=== PATIENT | male | born 1980 | race Caucasian/White ===

== ENCOUNTER 2024-03-25 21:12 | Observation (INO) ==
[2024-03-25] MEDS: SODIUM CHLORIDE 0.9% 1,000 ML IV STA (21:46)
[2024-03-25 21:52] LABS: Albumin Globulin Ratio 2.2 (0.9-2); Albumin Level 4.3 gm/dl (3.4-5.0); BUN Creatinine Ratio 17.6 (10-20); Bilirubin,Total 0.9 mg/dl (0.2-1.0); Calcium 8.8 mg/dl (8.6-10.3); Creatinine Clr Calc Pharmacy 76.3 ml/min; Est GFR (African American) 55.6 ml/min; Potassium 3.7 mmol/L (3.5-5.1); Total Protein 6.3 gm/dl (6.0-8.3)
[2024-03-25 21:57] LABS: Troponin I High Sensitivity 2.9 pg/ml (0-20)
[2024-03-25 22:01] LABS: Basophils # (auto) 0.08 K/uL (0.00-0.20); Basophils % (auto) 0.7 %; Eosinophils # (auto) 0.26 K/uL (0.00-0.50); Eosinophils % (auto) 2.3 %; Hematocrit (blood only) 42.1 % (42.0-52.0); Hemoglobin 14.9 g/dl (14.0-18.0); Immature Granulocytes # (auto) 0.02 K/uL (0.01-0.20); Immature Granulocytes % (auto) 0.2 %; Lymphocytes # (auto) 4.38 K/uL (1.20-3.40); Lymphocytes % (auto) 38.3 %; Mean Corpuscular Hemoglobin 31.4 pg (25.0-34.0); Mean Corpuscular Hgb Conc 35.4 g/dL (32.0-36.0); Mean Corpuscular Volume 88.6 fL (80.0-100.0); Monocytes # (auto) 0.79 K/uL (0.11-0.59); Monocytes % (auto) 6.9 %; Neutrophils % (auto) 51.6 %; Platelet Count 211 K/uL (130-400); RDW Coefficient of Variation 11.5 % (11.5-14.5); RDW Standard Deviation 37.1 fL (36.4-46.3); Red Blood Count 4.75 M/uL (4.70-6.10); White Blood Count 11.43 K/ul (4.8-10.8)
[2024-03-25 22:02] LABS: D Dimer 450 ug/L FEU (0-500)
[2024-03-25 22:07] LABS: Thyroid Stimulating Hormone 3.207 uIu/ml (0.300-4.500)
[2024-03-25] MEDS: SODIUM CHLORIDE 0.9% 500 ML IV STA (23:17)
--- NOTE | 2024-03-26 00:19 | History & Physical Report ---
Date of Service March 26, 2024 Assessment & Plan (1) Syncope and collapse: Plan: - Given history concern for cardiac vs vasovagal. Based on history does note sound like seizure - Hemodynamically stable now - Trop wnl, EKG with NSR - TTE pending - Monitor of telemetry->may need Holter monitor on d/c to rule out arrhythmia - Continue to monitor of tele (2) BLUE (acute kidney injury): Plan: - Creatine= 1.7 (baseline 1.2) - Would be quick to see increased creatine in the setting of rather short lived hypotension. - Noted episode of heat exhaustion last week-> CPK pending - Creatine also possible cause - Will continue with LR @125ml/hr overnight and repeat BMP qAM (3) Anxiety: Plan: - continue fluoxtine (4) ADD (attention deficit disorder): Plan: - continue methylphenidate Plan Code: Full Dispo: Tele Diet: regular VTE Prophylaxis Low risk- ambulation History of Present Illness Primary Care Provider: Fatemeh Olivera MD 43 year old male with a past medical history of ADHD, Anxiety presenting after syncopal episode. Went over the neighbor's house to help after neighbor had a syncopal episode. He said that he was helping his neighbor up when he started to feel lightheaded. Started to see floaters, nausea, diaphoretic. Sat down on the couch. witnessed event. Said that he was unresponsiveness for about 30s- unsure if he had a pulse, felt like he was not breathing. Denies tongue biting. urinary incontinence, seizure like activity. Was a little confused after the event, but last for less than 1 minute. When EMS arrived noted to be hypotensive and bradycardic, received atropine. Does use medical marijuana every evening, and did prior to event. Works out daily, has been supplementing with creatine for the past year. ED Course Significant for: CBC unremarkable, TSH wnl, Creatine= 1.7 (baseline= 1.2) , Trop= 2.9, CXR without acute pathology per my read , EKG with NSR, HR= 96, no ischemic changes/arrhythmias Interventions: 1.5L NSS Allergies Allergy/AdvReac Type Severity Reaction Status Date / Time No Known Allergies Allergy Verified 10/11/23 08:46 Home Medications Medication Instructions Recorded Confirmed Type fluoxetine 20 mg tablet 20 mg PO QAM #30 tabs 07/01/24 09/17/24 Rx methylphenidate HCl 10 mg tablet 10 mg PO TID #90 tabs 03/01/24 03/26/24 Rx Past Med/Surg History Problem List (Updated 03/26/24 @ 01:40 by Tano Portillo MD) BLUE (acute kidney injury) (Acute) Syncope and collapse (Acute) Hypertension (Chronic) Anxiety (Chronic) Insomnia (Chronic) ADD (attention deficit disorder) (Chronic) Medical History Hypertension Anxiety Insomnia ADD (attention deficit disorder) Surgical History S/P tonsillectomy History of mandibular surgery Family History Mother Diabetes Father Hypertension Dyslipidemia Social History Smoking Status: Never smoker Tobacco Type: Cigarettes Second Hand Exposure: Yes; Hx Alcohol Use: Yes Hx Substance Use: Yes Last Used Substance: Hours (ago) Preferred Language: Somali Communication Ability: Effective Beliefs That Will Affect Care: None marital status: Current Living Situation: Spouse current occupational status: employed Feels Safe at Home: Yes Safety Concerns: Feels Safe At This Time Childhood Exposure to Second-Hand Smoke: Yes Diet: low carbohydrate and regular caffeine: Yes Dental Care, Regularly: Yes Physical Activity Frequency: 5-6 Times per Week Seatbelt Use: always Sunscreen Use: Yes Review of Systems Review of Systems: As per above Physical Exam Physical Exam: Constitutional: well-appearing, no acute distress HEENT: NCAT, no conjunctival injection CV: regular rhythm, no murmur appreciated, extremities well-perfused, no LE edema Resp: CTABL, no wheezes/rales/rhonchi appreciated, no increased work of breathing GI: soft, nondistended, nontender MSK: no gross deformities appreciated Skin: warm, dry, no rash appreciated Neuro: alert, oriented, no focal neurologic deficit appreciated Results & Data Results & Data Vital Signs (Past 12 Hours) Vital Signs Temp Pulse Pulse Resp BP BP Pulse Ox 03/25/24 23:19 71 18 145/86 H 99 03/25/24 22:19 91 H 22 124/86 96 03/25/24 21:42 91 H 20 119/83 95 03/25/24 21:41 95 03/25/24 21:18 36.6 C 91 H 20 114/90 95 03/25/24 21:17 90 O2 Del Method 03/25/24 23:19 Room Air 03/25/24 22:19 Room Air 03/25/24 21:42 Room Air 03/25/24 21:41 Room Air 03/25/24 21:18 Room Air 03/25/24 21:17 Supervising Physician Co-Signing Physician Notes Patient seen and examined, chart reviewed, case discussed with Dr. Lima and I agree with the assessment and plan as above.. Patient is a 43yo male presenting with syncope - some concern for loss of pulse, brief respiratory arrest around the time of syncope Patient bradycardic for EMS - administered Atropine HD stable in the ER Exam unremarkable Labs and images reviewed Assessment/Plan Favor vaso-vagal syncope - patient with prodrome. Possible reflex bradycardia following episode? Now improved -Telemetry monitoring -Check 2D echo -Check CK - patient reports he overheated last week - has mildly elevated Cr at this time -Remainder as above Resident Activity Tracking Resident Involvement: Resident Care Provided Care Provided: Adult Hospital Medicine
[2024-03-26] MEDS: LACTATED RINGER'S 1,000 ML IV SCH (01:10)
--- NOTE | 2024-03-26 01:40 | Emergency Department Note ---
Impression & Plan Syncope and collapse, BLUE (acute kidney injury) ED Provider Note NAME: CESILIA GRIALDO AGE: 43 SEX: Male INFORMANT: Patient and ED PROVIDER(S): Tano Portillo MD CHIEF COMPLAINT: Syncope PLAN: Disposition: Admitted Outpatient prescription management: none Referral: None MEDICAL DECISION MAKING: Patient presented because of a syncopal episode. By the history it seems consistent with a vasovagal event however the prolonged nature, pulselessness reported, and the fact that he had recurrent hypotension and bradycardia requiring atropine raises concerns. Patient had a mild elevation of his creatinine over baseline but the remainder of his blood work looked good. D- dimer was within normal limits. Patient has no stigmata of DVT or PE. ECG was unremarkable cardiac monitoring did not reveal any dysrhythmia. Chest x-ray was normal. Patient was hydrated. Given the concerning course I discussed further management in the hospital. Patient and are in agreement. [facility] Dr[facility] Mur[facility]. Case discussed and diagnostics were reviewed. Patient was evaluated in the ER for further management. Care/management discussed with: marketing communications manager Level of care consideration(s): After review of the information above and other included data, I feel the patient requires escalation of care to admission Triage Nursing notes: reviewed and agree them. Vital Signs: reviewed and remarkable for no significant abnormalities Additional History obtained from: Patient's . She notes that he became unresponsive. He stopped breathing. She could not palpate a carotid pulse. Chronic Medical/Social Conditions affecting care: none Prior/ Outside/ External records reviewed: none Differential Diagnosis: Vasovagal event, dehydration, infection, hypoglycemia, electrolyte abnormalities, cardiac sources, intracerebral event, pulmonary embolism, seizure, toxicologic, neurologic, as well as other pathologies. Diagnostics, independently interpreted by me: ECG: Twelve-lead ECG reveals normal sinus rhythm at 96 beats per minute. No evidence of pericarditis, ischemia, ectopy, or dysrhythmia. Cardiac Monitoring: Cardiac monitoring ordered by me: The patient was placed on continuous cardiac monitoring and observed. It revealed a normal sinus rhythm at 70 beats per minute without ectopy or evidence of dysrhythmia. Medical decision rules: none Imaging studies: Chest x-ray. Findings: A chest x-ray was performed and revealed no pneumothorax, effusion, infiltrate, pulmonary edema, free air under the diaphragm, or wide mediastinum. Impression: No acute disease. HPI: 43 year old Male arrives for evaluation of syncope. Patient states that he was going over to a neighbor's house to help him out as the neighbor had passed out. His neighbor and just had surgery. When he was there the patient states he was not overly stressed out but started to feel unwell. He became diaphoretic. He sat down. states that he looked ashen and then passed out. She notes that he was not breathing and had no palpable carotid pulse. This lasted close to a minute. She slapped him around and stated that he slowly began to respond. His blood pressure was 90. EMS was summoned. Patient was noted to have dropped his blood pressure again and heart rate. Patient was given fluids and atropine. Patient denies any pain. Pt denies headache, fevers, chills, visual changes, neck pain, chest pain, breathing difficulties, nausea, vomiting, abdominal pain, back pain, melena, hematochezia, urinary symptoms, numbness, weakness, lymphadenopathy, rash, or other complaints.. PAST MEDICAL HISTORY: See Below, insomnia PAST SURGICAL HISTORY: See Below, SOCIAL HISTORY: See Below, HOME MEDICATIONS: See Below ALLERGIES: See Below VITALS: See Below PHYSICAL EXAMINATION: GENERAL: Awake, alert, well-appearing, in no distress HENT: Normocephalic, atraumatic. Oropharynx unremarkable. EYES: Normal conjunctiva. Sclera non-icteric. PERRLA. EOMI. NECK: Inspection normal. Non-tender. Supple. No nuchal rigidity. FROM. No masses. RESPIRATORY: Clear to auscultation. No wheezes. No rales. Normal respiratory effort. CARDIAC: Normal rate. Normal rhythm. No murmurs. No rubs. Extremities warm and well perfused. Pulses equal. No JVD. GI: Soft, non-distended. No tenderness to palpation. No rebound or guarding. No masses. RECTAL: Deferred. MUSCULOSKELETAL: Atraumatic. Chest examination reveals no tenderness. The back is symmetrical on inspection without obvious abnormality. There is no CVA tenderness to palpation. No joint edema. LOWER EXTREMITIES: Calves are equal size bilaterally and non-tender. No edema. No discoloration. NEURO: Normal sensorium. No sensory or motor deficits noted. No drift. Normal rapid alternating movements. Speech normal. Cranial nerves II through XII intact. SKIN: No rash or jaundice noted. PROCEDURES: none CRITICAL CARE: none OBSERVATION NOTE: none Past Med/Surg History Problem List (Updated 03/26/24 @ 01:40 by Tano Portillo MD) BLUE (acute kidney injury) (Acute) Syncope and collapse (Acute) Hypertension (Chronic) Anxiety (Chronic) Insomnia (Chronic) ADD (attention deficit disorder) (Chronic) Medical History Hypertension Anxiety Insomnia ADD (attention deficit disorder) Surgical History S/P tonsillectomy History of mandibular surgery Family History Mother Diabetes Father Hypertension Dyslipidemia Social History Smoking Status: Never smoker Tobacco Type: Cigarettes Second Hand Exposure: Yes; Hx Alcohol Use: Yes Hx Substance Use: No Preferred Language: Vietnamese Beliefs That Will Affect Care: None marital status: Current Living Situation: Spouse current occupational status: employed Feels Safe at Home: Yes Childhood Exposure to Second-Hand Smoke: Yes Diet: low carbohydrate and regular caffeine: Yes Dental Care, Regularly: Yes Physical Activity Frequency: 5-6 Times per Week Seatbelt Use: always Sunscreen Use: Yes Allergies Allergies Allergy/AdvReac Type Severity Reaction Status Date / Time No Known Allergies Allergy Verified 10/11/23 08:46 Home Meds Previous Rx's Medication Instructions Recorded fluoxetine 20 mg tablet 20 mg PO QAM #30 tabs 01/08/24 methylphenidate HCl 10 mg tablet 10 mg PO TID #90 tabs 03/01/24 Results & Data (ED) Vital Signs Vital Signs - 24 hr 03/25/24 21:16 03/25/24 21:17 03/25/24 21:18 Temperature 36.6 C Temperature Source Oral Pulse Rate 90 91 H Pulse Rate [Apical] Pulse Rate from SpO2 Sensor Respiratory Rate 20 Respiratory Effort / Characteristics Non-Labored Spontaneous Respiratory Depth Normal Respiratory Pattern Regular Blood Pressure 116/88 114/90 Blood Pressure [Right Arm] Blood Pressure Mean 100 98 Blood Pressure Mean [Right Arm] Blood Pressure Position Semi-fowlers Blood Pressure Position [Right Arm] Pulse Oximetry 95 Oxygen Delivery Method Room Air Sepsis Recent Fever Within 48 Hours No Sepsis New/Unexplained Change in Mental Status N/A Sepsis Action Taken by Nursing No Action Required 03/25/24 21:30 03/25/24 21:30 03/25/24 21:30 Temperature Temperature Source Pulse Rate 94 H Pulse Rate [Apical] Pulse Rate from SpO2 Sensor 95 H Respiratory Rate 19 Respiratory Effort / Characteristics Respiratory Depth Respiratory Pattern Blood Pressure 114/90 114/90 Blood Pressure [Right Arm] Blood Pressure Mean 96 96 Blood Pressure Mean [Right Arm] Blood Pressure Position Blood Pressure Position [Right Arm] Pulse Oximetry 94 Oxygen Delivery Method Sepsis Recent Fever Within 48 Hours Sepsis New/Unexplained Change in Mental Status Sepsis Action Taken by Nursing 03/25/24 21:33 03/25/24 21:41 03/25/24 21:42 Temperature Temperature Source Pulse Rate 91 H Pulse Rate [Apical] 91 H Pulse Rate from SpO2 Sensor 93 H Respiratory Rate 20 20 Respiratory Effort / Characteristics Non-Labored Spontaneous Respiratory Depth Normal Respiratory Pattern Regular Blood Pressure Blood Pressure [Right Arm] 119/83 Blood Pressure Mean Blood Pressure Mean [Right Arm] 95 Blood Pressure Position Blood Pressure Position [Right Arm] Pulse Oximetry 95 95 95 Oxygen Delivery Method Room Air Room Air Sepsis Recent Fever Within 48 Hours Sepsis New/Unexplained Change in Mental Status Sepsis Action Taken by Nursing 03/25/24 21:43 03/25/24 21:43 03/25/24 21:45 Temperature Temperature Source Pulse Rate 87 Pulse Rate [Apical] Pulse Rate from SpO2 Sensor 86 Respiratory Rate 26 H Respiratory Effort / Characteristics Respiratory Depth Respiratory Pattern Blood Pressure 119/83 119/83 Blood Pressure [Right Arm] Blood Pressure Mean 96 96 Blood Pressure Mean [Right Arm] Blood Pressure Position Blood Pressure Position [Right Arm] Pulse Oximetry 95 Oxygen Delivery Method Sepsis Recent Fever Within 48 Hours Sepsis New/Unexplained Change in Mental Status Sepsis Action Taken by Nursing 03/25/24 21:51 03/25/24 22:00 03/25/24 22:09 Temperature Temperature Source Pulse Rate 88 88 Pulse Rate [Apical] Pulse Rate from SpO2 Sensor 88 89 Respiratory Rate 19 21 Respiratory Effort / Characteristics Respiratory Depth Respiratory Pattern Blood Pressure 119/88 Blood Pressure [Right Arm] Blood Pressure Mean 92 Blood Pressure Mean [Right Arm] Blood Pressure Position Blood Pressure Position [Right Arm] Pulse Oximetry 94 96 Oxygen Delivery Method Sepsis Recent Fever Within 48 Hours Sepsis New/Unexplained Change in Mental Status Sepsis Action Taken by Nursing 03/25/24 22:12 03/25/24 22:15 03/25/24 22:15 Temperature Temperature Source Pulse Rate 87 Pulse Rate [Apical] Pulse Rate from SpO2 Sensor 86 Respiratory Rate 26 H Respiratory Effort / Characteristics Respiratory Depth Respiratory Pattern Blood Pressure 124/86 124/86 Blood Pressure [Right Arm] Blood Pressure Mean 95 95 Blood Pressure Mean [Right Arm] Blood Pressure Position Blood Pressure Position [Right Arm] Pulse Oximetry 97 Oxygen Delivery Method Sepsis Recent Fever Within 48 Hours Sepsis New/Unexplained Change in Mental Status Sepsis Action Taken by Nursing 03/25/24 22:19 03/25/24 22:24 03/25/24 22:30 Temperature Temperature Source Pulse Rate 93 H 92 H Pulse Rate [Apical] 91 H Pulse Rate from SpO2 Sensor 90 91 H Respiratory Rate 22 20 21 Respiratory Effort / Characteristics Non-Labored Spontaneous Respiratory Depth Normal Respiratory Pattern Regular Blood Pressure Blood Pressure [Right Arm] 124/86 Blood Pressure Mean Blood Pressure Mean [Right Arm] 98 Blood Pressure Position Blood Pressure Position [Right Arm] Semi-fowlers Pulse Oximetry 96 97 98 Oxygen Delivery Method Room Air Sepsis Recent Fever Within 48 Hours Sepsis New/Unexplained Change in Mental Status Sepsis Action Taken by Nursing 03/25/24 22:30 03/25/24 22:45 03/25/24 22:45 Temperature Temperature Source Pulse Rate Pulse Rate [Apical] Pulse Rate from SpO2 Sensor Respiratory Rate Respiratory Effort / Characteristics Respiratory Depth Respiratory Pattern Blood Pressure 130/93 128/86 128/86 Blood Pressure [Right Arm] Blood Pressure Mean 99 97 97 Blood Pressure Mean [Right Arm] Blood Pressure Position Blood Pressure Position [Right Arm] Pulse Oximetry Oxygen Delivery Method Sepsis Recent Fever Within 48 Hours Sepsis New/Unexplained Change in Mental Status Sepsis Action Taken by Nursing 03/25/24 22:57 03/25/24 23:00 03/25/24 23:00 Temperature Temperature Source Pulse Rate 78 Pulse Rate [Apical] Pulse Rate from SpO2 Sensor 79 Respiratory Rate 23 Respiratory Effort / Characteristics Respiratory Depth Respiratory Pattern Blood Pressure 138/86 138/86 Blood Pressure [Right Arm] Blood Pressure Mean 103 103 Blood Pressure Mean [Right Arm] Blood Pressure Position Blood Pressure Position [Right Arm] Pulse Oximetry 98 Oxygen Delivery Method Sepsis Recent Fever Within 48 Hours Sepsis New/Unexplained Change in Mental Status Sepsis Action Taken by Nursing 03/25/24 23:12 03/25/24 23:12 03/25/24 23:12 Temperature Temperature Source Pulse Rate Pulse Rate [Apical] Pulse Rate from SpO2 Sensor Respiratory Rate Respiratory Effort / Characteristics Respiratory Depth Respiratory Pattern Blood Pressure 145/86 H 145/86 H 145/86 H Blood Pressure [Right Arm] Blood Pressure Mean 98 98 98 Blood Pressure Mean [Right Arm] Blood Pressure Position Blood Pressure Position [Right Arm] Pulse Oximetry Oxygen Delivery Method Sepsis Recent Fever Within 48 Hours Sepsis New/Unexplained Change in Mental Status Sepsis Action Taken by Nursing 03/25/24 23:19 03/25/24 23:30 03/25/24 23:42 Temperature Temperature Source Pulse Rate 83 72 Pulse Rate [Apical] 71 Pulse Rate from SpO2 Sensor 83 73 Respiratory Rate 18 21 23 Respiratory Effort / Characteristics Non-Labored Spontaneous Respiratory Depth Normal Respiratory Pattern Regular Blood Pressure Blood Pressure [Right Arm] 145/86 H Blood Pressure Mean Blood Pressure Mean [Right Arm] 105 Blood Pressure Position Blood Pressure Position [Right Arm] Semi-fowlers Pulse Oximetry 99 98 98 Oxygen Delivery Method Room Air Sepsis Recent Fever Within 48 Hours Sepsis New/Unexplained Change in Mental Status Sepsis Action Taken by Nursing 03/26/24 00:03 03/26/24 00:15 03/26/24 00:21 Temperature Temperature Source Pulse Rate 72 67 85 Pulse Rate [Apical] Pulse Rate from SpO2 Sensor 72 67 80 Respiratory Rate 16 21 17 Respiratory Effort / Characteristics Respiratory Depth Respiratory Pattern Blood Pressure Blood Pressure [Right Arm] Blood Pressure Mean Blood Pressure Mean [Right Arm] Blood Pressure Position Blood Pressure Position [Right Arm] Pulse Oximetry 95 97 96 Oxygen Delivery Method Sepsis Recent Fever Within 48 Hours Sepsis New/Unexplained Change in Mental Status Sepsis Action Taken by Nursing 03/26/24 00:30 03/26/24 01:17 Temperature Temperature Source Pulse Rate 71 71 Pulse Rate [Apical] Pulse Rate from SpO2 Sensor 73 Respiratory Rate 21 Respiratory Effort / Characteristics Respiratory Depth Respiratory Pattern Blood Pressure Blood Pressure [Right Arm] Blood Pressure Mean Blood Pressure Mean [Right Arm] Blood Pressure Position Blood Pressure Position [Right Arm] Pulse Oximetry 98 Oxygen Delivery Method Sepsis Recent Fever Within 48 Hours Sepsis New/Unexplained Change in Mental Status Sepsis Action Taken by Nursing Laboratory Data 03/25/24 21:21 03/25/24 21:21 Lab Results 03/25/24 Range/Units 21:21 WBC 11.43 H (4.8-10.8) K/ul RBC 4.75 (4.70-6.10) M/uL Hgb 14.9 (14.0-18.0) g/dl Hct 42.1 (42.0-52.0) % MCV 88.6 (80.0-100.0) fL MCH 31.4 (25.0-34.0) pg MCHC 35.4 (32.0-36.0) g/dL RDW Std Deviation 37.1 (36.4-46.3) fL RDW Coeff of Alejandro 11.5 (11.5-14.5) % Plt Count 211 (130-400) K/uL MPV 10.0 (9.4-12.4) fL Immature Gran % (Auto) 0.2 % Neut % (Auto) 51.6 % Lymph % (Auto) 38.3 % [place] % (Auto) 6.9 % Eos % (Auto) 2.3 % Baso % (Auto) 0.7 % Neut # (Auto) 5.90 (1.40-6.50) K/uL Lymph # (Auto) 4.38 H (1.20-3.40) K/uL [place] # (Auto) 0.79 H (0.11-0.59) K/uL Eos # (Auto) 0.26 (0.00-0.50) K/uL Baso # (Auto) 0.08 (0.00-0.20) K/uL Immature Gran # (Auto) 0.02 (0.01-0.20) K/uL D-Dimer 450 (0-500) ug/L FEU Sodium 138 (136-145) mmol/L Potassium 3.7 (3.5-5.1) mmol/L Chloride 103 (98-107) mmol/L Carbon Dioxide 28 (21-32) mmol/L Anion Gap 7 (3-11) BUN 30 H (6-23) mg/dl Creatinine 1.70 H (0.6-1.4) mg/dl Est Cr Clr Drug Dosing 76.3 ml/min Est GFR ( Amer) 55.6 ml/min Est GFR (Non-Af Amer) 48.0 ml/min BUN/Creatinine Ratio 17.6 (10-20) Glucose 154 H (70-99(Fasting)) mg/dl Calcium 8.8 (8.6-10.3) mg/dl Magnesium 2.0 (1.7-2.4) mg/dl Total Bilirubin 0.9 (0.2-1.0) mg/dl AST 30 (13-39) U/L ALT 40 (7-52) U/L Alkaline Phosphatase 57 (34-104) U/L Troponin I High Sens 2.9 (0-20) pg/ml Total Protein 6.3 (6.0-8.3) gm/dl Albumin 4.3 (3.4-5.0) gm/dl Globulin 2.0 L (2.5-4.0) gm/dl Albumin/Globulin Ratio 2.2 H (0.9-2) TSH 3.207 (0.300-4.500) uIu/ml Administered Medications Lactated Ringer's (Lr) 1,000 mls @ 125 mls/hr IV .Q8H NEY Stop: 03/26/24 16:59 Last Admin: 03/26/24 01:10 Dose: 125 mls/hr Documented By: GREGG Discontinued Medications Sodium Chloride (Nss) 1,000 mls @ 999 mls/hr IV .Q1H1M STA Stop: 03/25/24 22:18 Last Infusion: 03/25/24 23:17 Dose: Infused Documented By: Admin: 03/25/24 21:46 Dose: 999 mls/hr Documented By: Sodium Chloride (Nss) 500 mls @ 999 mls/hr IV .Q31M STA Stop: 03/25/24 21:48 Last Admin: 03/25/24 23:17 Dose: 999 mls/hr Documented By: Discharge Plan Visit Data Chief Complaint: Syncope Stated Complaint: SYNCOPE, HYPOTENSION ED Provider: Tano Portillo Discharge Problem: Syncope and collapse, BLUE (acute kidney injury) Forms Stand Alone Forms: My [employer] Prescriptions Prescriptions: No Action fluoxetine 20 mg tablet 20 mg PO QAM Qty: 30 2RF methylphenidate HCl 10 mg tablet 10 mg PO TID Qty: 90 0RF Referrals Referrals: Fatemeh Olivera MD [Primary Care Provider] -
--- NOTE | 2024-03-26 04:06 | Billing Data ---
Date of Service March 26, 2024 Coding Level of Care Code 34341 INT INP/OBS CARE
[2024-03-26] MEDS: METHYLPHENIDATE HCL 10 MG TABLET PO SCH (05:34)
[2024-03-26 06:24] LABS: Albumin Globulin Ratio 2.2 (0.9-2); BUN Creatinine Ratio 20.6 (10-20); Bilirubin,Total 0.5 mg/dl (0.2-1.0); Calcium 8.5 mg/dl (8.6-10.3); Est GFR (African American) 69.7 ml/min; Est GFR (Non-African American) 60.2 ml/min; Globulin 1.8 gm/dl (2.5-4.0); Total Protein 5.8 gm/dl (6.0-8.3)
[2024-03-26 07:46] VITALS: RESP 18; TEMP 97.9
--- NOTE | 2024-03-26 08:03 | XRay Report ---
XR chest 1V portable HISTORY: syncope COMPARISON: Chest 08/02/2012. FINDINGS: The lungs are clear. Cardiac silhouette is normal in size. No pleural effusions. No pneumot horax. IMPRESSION: No acute process. ACT 112: Negative or not required by law. Electronically signed by: Fernando Babin M.D. 03/26/2024 8:02 AM
--- NOTE | 2024-03-26 08:31 | Electrocardiogram Report ---
Test Reason : Blood Pressure : */* mmHG Vent. Rate : 96 BPM Atrial Rate : 96 BPM P-R Int : 154 ms QRS Dur : 90 ms QT Int : 376 ms P-R-T Axes : 19 67 19 degrees QTcB Int : 475 ms Normal sinus rhythm Normal ECG When compared with ECG of 02-Aug-2012 13:46, No significant change Confirmed by Abdi Barger ([id number]) on 03/26/2024 8:31:36 AM Referred By: REFERRED SELF Confirmed By: Abdi Barger
[2024-03-26] MEDS: FLUoxetine HCL 20 MG CAP PO SCH (08:43)
--- NOTE | 2024-03-26 10:16 | XCELERA ---
[id number]
[2024-03-26 11:30] VITALS: BP 149/88; PULSE 56; O2SAT 98
[2024-03-26 15:22] LABS: iSTAT Creatinine 1.9 mg/dl (0.6-1.3); iSTAT Hemoglobin 13.9 g/dl (14.0-18.0); iSTAT Ionized Calcium 1.15 mmol/l (1.12-1.32); iSTAT Potassium 3.6 mmol/L (3.3-5.0)
--- NOTE | 2024-03-26 15:30 | Discharge Summary ---
Date of Service March 26, 2024 Admission HPI Per Admitting Provider 43 year old male with a past medical history of ADHD, Anxiety presenting after syncopal episode. Went over the neighbor's house to help after neighbor had a syncopal episode. He said that he was helping his neighbor up when he started to feel lightheaded. Started to see floaters, nausea, diaphoretic. Sat down on the couch. witnessed event. Said that he was unresponsiveness for about 30s- unsure if he had a pulse, felt like he was not breathing. Denies tongue biting. urinary incontinence, seizure like activity. Was a little confused after the event, but last for less than 1 minute. When EMS arrived noted to be hypotensive and bradycardic, received atropine. Does use medical marijuana every evening, and did prior to event. Works out daily, has been supplementing with creatine for the past year. ED Course Significant for: CBC unremarkable, TSH wnl, Creatine= 1.7 (baseline= 1.2) , Trop= 2.9, CXR without acute pathology per my read , EKG with NSR, HR= 96, no ischemic changes/arrhythmias Interventions: 1.5L NSS Admission Exam Per Admitting Provider Constitutional: well-appearing, no acute distress HEENT: NCAT, no conjunctival injection CV: regular rhythm, no murmur appreciated, extremities well-perfused, no LE edema Resp: CTABL, no wheezes/rales/rhonchi appreciated, no increased work of breathing GI: soft, nondistended, nontender MSK: no gross deformities appreciated Skin: warm, dry, no rash appreciated Neuro: alert, oriented, no focal neurologic deficit appreciated Principal Diagnosis Syncope Discharge Exam Constitutional: well-appearing, no acute distress HEENT: NAD CV: regular rhythm, no murmur appreciated, extremities well-perfused, no LE edema Resp: no wheezes/rales/rhonchi appreciated, no increased work of breathing GI: soft, nondistended, nontender MSK: no gross deformities appreciated Skin: warm, dry, no rash appreciated Neuro: alert, oriented, no focal neurologic deficit appreciated Discharge Data Allergies Allergy/AdvReac Type Severity Reaction Status Date / Time No Known Allergies Allergy Verified 10/11/23 08:46 Consultations 03/25/24 23:52 ED Decision to Admit Stat Procedures Performed CXR 03/25/24 : NAD ECHO 03/26/24: Normal. EF 60-65% Hospital Course (1) Syncope and collapse: Also bradycardic in ED requiring Atropine. Negative ED work up except elevated CPK. Monitored on Telemetry. Trop wnl, EKG with NSR, Echo was normal with EF 60-65%. Bradycardia resolved With prodrome - favors vasovagal -advised to stay hydrated with electrolyte drinks. -To lay down with onset of prodrome. (2) BLUE (acute kidney injury): found to be in mild BLUE and elevated CPK, possibly due to dehydration and recent workout at gym. He responded well to IV fluids. Advised to hydrate well and to avoid excess exhaustion in sun. (3) Anxiety: - continue fluoxtine (4) ADD (attention deficit disorder): - continue methylphenidate Total Time Total Time Spent Total Time Spent (In Minutes): as per attending entry Discharge Plan Discharge Items Patient Disposition: Home - Self-Care Reason For Visit: SYNCOPAL EPISODE Discharge Diagnosis: Syncope Activity: Resume your previous activity Non-emergency contact: Primary Care Provider Call non-emergency contact if: your symptoms worsen Follow-up/Referrals: Fatemeh Olivera MD [Primary Care Provider] - 04/05/24 2:00 pm Diet: Regular Addtl Attending Provider Instructions: You were admitted to the hospital for Reflex / vasovagal Syncope. It can happen sometimes due to exposure to stressful situations. You were treated with fluids and we did a cardiac workup to make sure everything is ok. Your EKG (that checks the electrical activity of the heart) was normal and Troponin blood test that checks for heart attack was also normal. We have monitored your heart rhythm overnight and there were no incidents of any irregularities in your heart rhythm, which is good. Your heart rate is found to be slightly lower than normal, however given your regular exercise and cardio activity, it is considered as healthy normal in your case. We have done imaging of your heart called ECHO that looks at the structure and function of your heart and the result is normal. A discharge summary will be sent to your primary care physician to ensure continuity of care. Please bring this discharge summary with you to your next office appointment so that your provider can review it at that time. Medications: Your medication list has been reviewed and reconciled upon discharge. There are no changes to your medications at this time. So, you may continue with your home medications as usual. Follow up appointments: - Make a follow up appointment with your PCP within the next week. It is very important that you follow up with them shortly after discharge from the hospital. - Keep all of your follow up appointments as already scheduled. If you cannot make an appointment, notify your provider. CONTACT YOUR PRIMARY CARE PROVIDER if you experience any of the following: - Difficulty following your treatment plan - Difficulty taking any of your medications CALL 911 OR GO TO THE EMERGENCY DEPARTMENT if you experience any of the following: - Return or symptoms or any new symptoms - Sudden, severe abdominal pain or nausea/vomiting - Severe chest pain or chest pain that radiates to your jaw or arm - Sudden, severe shortness of breath or difficulty breathing Pending Studies at Discharge: No Stand-Alone Forms: My [facility] [employer], Smoking Cessation Medications and DC Order Prescriptions: Continued fluoxetine 20 mg tablet 20 mg PO QAM Qty: 30 2RF methylphenidate HCl 10 mg tablet 10 mg PO TID Qty: 90 0RF Discharge Orders: Discharge Order (Routine); Ordered 03/26/24 Ordered By: Hilda Cabrera Admission Data Admit Date/Time: 03/26/24 00:40 Attending Provider: Emily Dey Admit Provider: Flores Lima Primary Care Provider: Fatemeh Olivera Other Providers: Carlyn Murillo Other Interventions: Discharge Summary Assessment (RN) Last Done: 03/26/24 11:11 Supervising Physician Co-Signing Physician Notes Attending Physician Supervision Note: I independently interviewed and examined the patient and verified the smith history and physical, reviewed labs and image studies and agree with findings and care plan noted above.
== END 2024-03-26 11:55 | disposition home or self-care (01) ==
LOC: ED 21:12 → 2N 21:12 → SUATTDRO 03-26 00:40 → 2N 03-26 03:42
DX: R55 Syncope and collapse; N17.9 Acute kidney failure, unspecified; Z79.899 Other long term (current) drug therapy